=== PATIENT | male | born 1985 | race Caucasian/White ===

== ENCOUNTER → 2016-09-03 | Outpatient (CLI) | payer OTHER | END | disposition home or self-care (01) | LOC: GMAL 10:29 | PROVIDERS: ATTEND Family Medicine | DX: E29.1 Testicular hypofunction (principal); R53.83 Other fatigue ==

== ENCOUNTER → 2016-09-24 | Outpatient (CLI) | payer OTHER | END | disposition home or self-care (01) | LOC: GMAL 10:32 | PROVIDERS: ATTEND Family Medicine | DX: D51.3 Other dietary vitamin B12 deficiency anemia (principal) ==

== ENCOUNTER → 2019-11-11 | Outpatient (CLI) | payer OTHER | LOC: GMAL 11:31 | PROVIDERS: ATTEND Family Medicine | DX: Z00.00 Encounter for general adult medical examination without abnormal findings (principal) ==

== ENCOUNTER → 2020-05-17 | Outpatient (CLI) | payer SELFPAY | LOC: GMAL 10:53 | PROVIDERS: ATTEND Family Medicine | DX: E83.42 Hypomagnesemia (principal); R53.83 Other fatigue ==